=== PATIENT | female | born 1995 | race Caucasian/White ===

== ENCOUNTER 2016-05-09 07:19 | Emergency (ER) | payer OTHER ==
[2016-05-09 07:43] VITALS: BP 100/68
--- NOTE | 2016-05-09 08:01 | UC ---
Abdominal Pain Female HPI - HPI Summary HPI Summary: NAUSEA AND VOMITING X 3 HRS STARTED THIS MORNING, + ABDOMINAL PAIN , NO FEVER, NO DIARRHEA, NO URINARY SX - History of Current Complaint Chief Complaint: UCGI Stated Complaint: VOMITING Time Seen by Provider: 05/09/16 07:51 Hx Obtained From: Patient Hx Last Menstrual Period: 04/05/16 (denies sexual activity since last menses and is irregular) ?: No Onset/Duration: Sudden Onset, Lasting Hours - 3, Still Present Timing: Constant Severity Initially: Moderate Severity Currently: Moderate Location: Diffuse Radiates: No Character: Cramping Aggravating Factor(s): Food Alleviating Factor(s): NPO Associated Signs and Symptoms: Positive: Nausea, Vomiting. Negative: Diaphoresis, Fever, Cough, Chest Pain, Dizzy, Back Pain, Constipation, Blood in Stool, Urinary Symptoms, Decreased Appetite, Vaginal Bleeding, Vaginal Discharge , Diarrhea Allergies/Adverse Reactions: Allergies Allergy/AdvReac Type Severity Reaction Status Date / Time No Known Allergies Allergy Verified 05/09/16 07:38 Home Medications: Home Medications Norgestimate-Ethinyl Estradiol [Trinessa 0.18/0.215/0.25 mg-35 Mcg] 1 tab PO DAILY 05/09/16 [History Confirmed 05/09/16] PMH/Surg Hx/FS Hx/Imm Hx Endocrine History Of: Denies: Diabetes, Thyroid Disease, Hyperthyroidism, Hypothyroidism, Dyslipidemia Cardiovascular History Of: Denies: Cardiac Disorders, Hypertension, Pacemaker/ICD, Myocardial Infarction , Congestive Heart Failure, Atrial Fibrillation, Deep Vein Thrombosis, Bleeding Disorders Respiratory History Of: Denies: COPD, Asthma, Bronchitis, Pneumonia, Pulmonary Embolism GI/ History Of: Reports: Gastroesophageal Reflux Denies: Ulcer, Gastrointestinal Bleed, Gall Bladder Disease, Kidney Stones, Diverticulitis, Renal Disease, Urosepsis Neurological History Of: Denies: TIA, CVA, Dementia, Seizures, Migraine Psychological History Of: Denies: Anxiety, Depression, Bipolar Disorder, Schizophrenia, Post Traumatic Stress Disorder Cancer History Of: Denies: Lung Cancer, Colorectal Cancer, Breast Cancer, Prostate Cancer, Cervical Cancer Other History Of: Negative For: HIV, Hepatitis B, Hepatitis C, Anticoagulant Therapy - Surgical History Surgical History: Yes Surgery Procedure, Year, and Place: Endoscopy, 05/02/15, [facility]; ear tubes - Family History Known Family History: Positive: Cardiac Disease, Hypertension - maternal grandmother - Social History Alcohol Use: None Substance Use Type: None Smoking Status (MU): Never Smoked Tobacco - Immunization History Most Recent Influenza Vaccination: November 2015 Review of Systems Constitutional: Negative Skin: Negative Eyes: Negative ENT: Negative Respiratory: Negative Cardiovascular: Negative Gastrointestinal: Abdominal Pain, Vomiting Genitourinary: Negative All Other Systems Reviewed And Are Negative: Yes Physical Exam Triage Information Reviewed: Yes Appearance: Well-Appearing, No Pain Distress, Well-Nourished Vital Signs: Initial Vital Signs Temp 97.8 F 05/09/16 07:36 Pulse 68 05/09/16 07:36 Resp 16 05/09/16 07:36 BP 100/68 05/09/16 07:36 Pulse Ox 99 05/09/16 07:36 Vital Signs Reviewed: Yes Eyes: Positive: Conjunctiva Clear ENT: Positive: Normal ENT inspection, Hearing grossly normal, Pharynx normal Dental Exam: Normal Neck: Positive: Supple, Nontender, No Lymphadenopathy Respiratory Exam: Normal Respiratory: Positive: Chest non-tender, Lungs clear, Normal breath sounds Cardiovascular Exam: Normal Cardiovascular: Positive: RRR, No Murmur Abdominal Exam: Normal Abdomen Description: Positive: Soft. Negative: CVA Tenderness (R), CVA Tenderness (L), Distended, Guarding Musculoskeletal Exam: Normal Skin Exam: Normal Abd Pain Female Course/Dx - Differential Dx/Diagnosis Provider Diagnoses: GASTRITIS Discharge - Discharge Plan Condition: Stable Disposition: HOME Prescriptions: Ondansetron [Zofran Odt] 8 mg PO Q8H PRN #9 tab PRN Reason: Nausea/Vomiting Patient Education Materials: Gastritis (ED) Forms: *Work Release Referrals: Arron Santos DO [Primary Care Provider] - If Needed
== END 2016-05-09 08:18 | disposition home or self-care (01) ==
LOC: UCCORT 07:19
DX: K29.70 Gastritis, unspecified, without bleeding (principal)
CPT/HCPCS: 99212; G0463

== ENCOUNTER 2016-12-26 08:43 | Emergency (ER) | payer OTHER ==
[2016-12-26 08:57] VITALS: BP 109/75
--- NOTE | 2016-12-26 09:08 | UC ---
Respiratory Complaint HPI - HPI Summary HPI Summary: chest congestion / cough x 1 week no fever, no chills + nasal congestion , sore throat - History of Current Complaint Chief Complaint: UCRespiratory Stated Complaint: SORE THROAT Time Seen by Provider: 12/26/16 09:00 Hx Obtained From: Patient Hx Last Menstrual Period: Nov 24 ?: No Onset/Duration: Gradual Onset, Lasting Weeks - 7, Still Present Timing: Constant Severity Initially: Moderate Severity Currently: Moderate Character: Cough: Nonproductive Aggravating Factors: Exertion, Deep Breaths Alleviating Factors: Nothing Associated Signs And Symptoms: Positive: URI, Nasal Congestion. Negative: Dyspnea, Fever, Chills, Pleuritic Chest Pain, Wheezing, Hemoptysis, Dizziness, Calf Pain, Calf Swelling, Hoarseness, Sinus Discomfort - Allergies/Home Medications Allergies/Adverse Reactions: Allergies Allergy/AdvReac Type Severity Reaction Status Date / Time No Known Allergies Allergy Verified 12/26/16 08:57 Home Medications: Home Medications Oral Scabies Med 25 mg PO ONCE 12/26/16 [History Confirmed 12/26/16] PMH/Surg Hx/FS Hx/Imm Hx Previously Healthy: Yes Other History Of: Negative For: HIV, Hepatitis B, Hepatitis C, Anticoagulant Therapy - Surgical History Surgical History: Yes Surgery Procedure, Year, and Place: Endoscopy, 05/02/15, [facility] [place]; ear tubes - Family History Known Family History: Positive: Cardiac Disease, Hypertension - maternal grandmother - Social History Alcohol Use: Weekly Alcohol Amount: 4-5 Substance Use Type: None Smoking Status (MU): Never Smoked Tobacco - Immunization History Most Recent Influenza Vaccination: November 2015 Review of Systems Constitutional: Negative Skin: Negative Eyes: Negative ENT: Sore Throat, Nasal Discharge Respiratory: Cough Cardiovascular: Negative Gastrointestinal: Negative Is Patient Immunocompromised?: No All Other Systems Reviewed And Are Negative: Yes Physical Exam Triage Information Reviewed: Yes Appearance: Well-Appearing, No Pain Distress, Well-Nourished Vital Signs: Initial Vital Signs Temp 98.6 F 12/26/16 08:49 Pulse 69 12/26/16 08:49 Resp 20 12/26/16 08:49 BP 109/75 12/26/16 08:49 Pulse Ox 100 12/26/16 08:49 Vital Signs Reviewed: Yes Eyes: Positive: Conjunctiva Clear ENT: Positive: Normal ENT inspection, Hearing grossly normal, Pharynx normal, Nasal congestion, Nasal drainage, TMs normal Neck exam: Normal Neck: Positive: Supple, Nontender, No Lymphadenopathy Respiratory: Positive: Chest non-tender, Lungs clear, Normal breath sounds Cardiovascular: Positive: RRR, No Murmur, Pulses Normal Skin Exam: Normal UC Diagnostic Evaluation - Laboratory O2 Sat by Pulse Oximetry: 100 Respiratory Course/Dx - Differential Dx/Diagnosis Provider Diagnoses: viral bronchitis Discharge - Discharge Plan Condition: Stable Disposition: HOME Patient Education Materials: Acute Bronchitis (ED) Forms: *School Release, *Work Release Referrals: Arron Santos DO [Primary Care Provider] - If Needed
== END 2016-12-26 09:09 | disposition home or self-care (01) ==
LOC: UCCORT 08:43
DX: J20.8 Acute bronchitis due to other specified organisms (principal)
CPT/HCPCS: 99211; G0463

== ENCOUNTER 2017-03-22 12:43 | Emergency (ER) | payer OTHER ==
[2017-03-22 13:41] VITALS: BP 118/82
== END 2017-03-22 13:52 | disposition left against medical advice (07) ==
LOC: UCCORT 12:43
DX: J02.9 Acute pharyngitis, unspecified (principal); Z53.21 Procedure and treatment not carried out due to patient leaving prior to being seen by health care provider

== ENCOUNTER 2017-05-12 18:20 | Emergency (ER) | payer OTHER | END 2017-05-12 18:39 | disposition left against medical advice (07) | LOC: UCCORT 18:20 | DX: R68.89 Other general symptoms and signs (principal); Z53.21 Procedure and treatment not carried out due to patient leaving prior to being seen by health care provider ==

== ENCOUNTER 2017-05-16 07:13 | Emergency (ER) | payer OTHER ==
[2017-05-16 07:35] VITALS: BP 105/66
--- NOTE | 2017-05-16 07:54 | UC ---
Respiratory Complaint HPI - HPI Summary HPI Summary: Cough and congestion for about two days. She also has sore throat. No fever or myalgias. - History of Current Complaint Chief Complaint: UCRespiratory Stated Complaint: FLU SYMPTOMS Time Seen by Provider: 05/16/17 07:44 Hx Obtained From: Patient Hx Last Menstrual Period: 04/30/17 Onset/Duration: Gradual Onset, Lasting Days Timing: Constant Severity Initially: Moderate Severity Currently: Moderate Pain Intensity: 5 Character: Cough: Nonproductive Aggravating Factors: Deep Breaths, Recumbent Position Alleviating Factors: Upright Position, Spontaneous Resolution Associated Signs And Symptoms: Positive: URI, Nasal Congestion. Negative: Fever , Calf Pain, Calf Swelling - Allergies/Home Medications Allergies/Adverse Reactions: Allergies Allergy/AdvReac Type Severity Reaction Status Date / Time No Known Allergies Allergy Verified 05/16/17 07:24 Home Medications: Home Medications Acetaminophen TAB* [Tylenol TAB*] 650 mg PO ONCE PRN 05/16/17 [History Confirmed 05/16/17] PMH/Surg Hx/FS Hx/Imm Hx Previously Healthy: Yes Other History Of: Negative For: HIV, Hepatitis B, Hepatitis C, Anticoagulant Therapy - Surgical History Surgical History: Yes Surgery Procedure, Year, and Place: Endoscopy, [place]15[place] [facility] [place] - Family History Known Family History: Positive: Cardiac Disease, Hypertension - maternal grandmother - Social History Occupation: Employed Full-time Alcohol Use: Weekly Alcohol Amount: 1-2 Substance Use Type: None Smoking Status (MU): Never Smoked Tobacco - Immunization History Most Recent Influenza Vaccination: November 2015 Review of Systems Constitutional: Negative ENT: Sore Throat Respiratory: Cough All Other Systems Reviewed And Are Negative: Yes Physical Exam Triage Information Reviewed: Yes Appearance: Well-Appearing, No Pain Distress, Well-Nourished Vital Signs: Initial Vital Signs Temp 98.3 F 05/16/17 07:26 Pulse 69 05/16/17 07:26 Resp 20 05/16/17 07:26 BP 105/66 05/16/17 07:26 Pulse Ox 99 05/16/17 07:26 Vital Signs Reviewed: Yes Eyes: Positive: Conjunctiva Clear ENT: Positive: Pharyngeal erythema, Nasal congestion, Uvula midline. Negative: TM bulging - there is cesar clear fluid without significant bulging., TM dull, TM red, Tonsillar swelling, Tonsillar exudate, Trismus, Muffled voice, Sinus tenderness Neck: Positive: Supple, Nontender, No Lymphadenopathy Respiratory: Positive: Lungs clear, Normal breath sounds, No respiratory distress, No accessory muscle use. Negative: Respiratory distress, Decreased breath sounds, Accessory muscle use, Crackles, Rhonchi, Stridor, Wheezing Cardiovascular: Positive: RRR, No Murmur Abdomen Description: Positive: Nontender, No Organomegaly. Negative: Distended , Guarding Musculoskeletal: Positive: Strength Intact, ROM Intact, No Edema Neurological: Positive: Alert, Muscle Tone Normal. Negative: Fatigued Psychological: Positive: Age Appropriate Behavior Skin: Negative: rashes UC Diagnostic Evaluation - Laboratory O2 Sat by Pulse Oximetry: 99 Respiratory Course/Dx - Differential Dx/Diagnosis Provider Diagnoses: uri Discharge - Discharge Plan Condition: Good Disposition: HOME Prescriptions: Oseltamivir CAP* [Tamiflu CAP*] 75 mg PO DAILY #10 cap Patient Education Materials: Influenza (DC) Forms: *Work Release Referrals: No Primary Care Phys,NOPCP [Primary Care Provider] -
== END 2017-05-16 09:02 | disposition home or self-care (01) ==
LOC: UCCORT 07:13
DX: J06.9 Acute upper respiratory infection, unspecified (principal); Z32.02 Encounter for pregnancy test, result negative
CPT/HCPCS: 84702; 87502; 99212; G0463

== ENCOUNTER 2017-12-12 16:07 | Emergency (ER) | payer BC ==
[2017-12-12 18:40] VITALS: BP 114/63
--- NOTE | 2017-12-12 18:40 | UC ---
UC General HPI - HPI Summary HPI Summary: sore throat x 3 says. now runny nose and cough - History of Current Complaint Stated Complaint: ST Time Seen by Provider: 12/12/17 18:30 Hx Obtained From: Patient Hx Last Menstrual Period: 04/30/17 Onset/Duration: Gradual Onset Timing: Constant Alleviating: nothing Associated Signs & Symptoms: Positive: Cough. Negative: Fever - Allergy/Home Medications Allergies/Adverse Reactions: Allergies Allergy/AdvReac Type Severity Reaction Status Date / Time No Known Allergies Allergy Verified 12/12/17 18:36 Home Medications: Home Medications Dm/Pseudoephed/Acetaminophen [Day-Time Multi-Symptom Co] 1 cap PO ONCE 12/12/17 [History Confirmed 12/12/17] PMH/Surg Hx/FS Hx/Imm Hx Previously Healthy: Yes Other History Of: Negative For: HIV, Hepatitis B, Hepatitis C, Anticoagulant Therapy - Surgical History Surgical History: Yes Surgery Procedure, Year, and Place: Endoscopy, 05/02/15, [facility] [place]; ear tubes - Family History Known Family History: Positive: Cardiac Disease, Hypertension - maternal grandmother - Social History Occupation: Employed Full-time Alcohol Use: Weekly Alcohol Amount: 1-2 Substance Use Type: None Smoking Status (MU): Never Smoked Tobacco - Immunization History Most Recent Influenza Vaccination: November 2015 Vaccination Up to Date: Yes Review of Systems Constitutional: Negative Skin: Negative Eyes: Negative ENT: Sore Throat, Sinus Congestion Respiratory: Cough Cardiovascular: Negative Gastrointestinal: Negative Genitourinary: Negative Motor: Negative Neurovascular: Negative Musculoskeletal: Negative Neurological: Negative Psychological: Negative Is Patient Immunocompromised?: No All Other Systems Reviewed And Are Negative: Yes Physical Exam Triage Information Reviewed: Yes Appearance: Well-Appearing Vital Signs Reviewed: Yes Eyes: Positive: Conjunctiva Clear ENT: Positive: Pharyngeal erythema, Nasal congestion, TMs normal, Uvula midline. Negative: Trismus, Muffled voice, Hoarse voice, Sinus tenderness Neck: Positive: Supple, Nontender, No Lymphadenopathy Respiratory: Positive: Lungs clear, Normal breath sounds Cardiovascular: Positive: RRR, No Murmur Abdomen Description: Positive: Nontender, No Organomegaly, Soft Bowel Sounds: Positive: Present Musculoskeletal: Positive: ROM Intact Neurological: Positive: Alert Psychological: Positive: Age Appropriate Behavior Skin Exam: Normal Diagnostics - Laboratory Diagnostic Studies Completed/Ordered: rapid strep=neg Course/Dx - Course Course Of Treatment: rapid strep=neg. tx supportive - Differential Dx - Multi-Symptom Provider Diagnoses: uri. sore throat Discharge - Sign-Out/Discharge Documenting (check all that apply): Patient Departure All imaging exams completed and their final reports reviewed: No Studies - Discharge Plan Condition: Stable Disposition: HOME Patient Education Materials: Upper Respiratory Infection (ED), Pharyngitis (ED) Forms: *Work Release Referrals: Grisel Mccarthy [Primary Care Provider] - 7 Days - Billing Disposition and Condition Condition: STABLE Disposition: Home
== END 2017-12-12 19:02 | disposition home or self-care (01) ==
LOC: UCCORT 16:07
DX: J06.9 Acute upper respiratory infection, unspecified (principal); J02.9 Acute pharyngitis, unspecified
CPT/HCPCS: 87651; 99211; G0463

== ENCOUNTER 2018-01-21 11:28 | Emergency (ER) | payer BC ==
[2018-01-21 12:00] VITALS: BP 115/77
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
--- NOTE | 2018-01-21 13:05 | RAD ---
Indication: Left mandible injury. 4 views of the mandible demonstrates no fracture. No other bone or joint abnormality is identified. IMPRESSION: No fracture of the mandible is noted.
== END 2018-01-21 13:12 | disposition home or self-care (01) ==
LOC: UCCORT 11:28
DX: M26.621 Arthralgia of right temporomandibular joint (principal)
CPT/HCPCS: 70110; 99211; G0463

== ENCOUNTER 2018-03-20 11:58 | Emergency (ER) | payer BC ==
[2018-03-20 13:37] VITALS: BP 134/93
--- NOTE | 2018-03-20 14:13 | UC ---
FLU HPI - HPI Summary HPI Summary: 22 year old female presents with 3 day history fatigue, body aches, chills, decreased appetite, nasal congestion, sore throat, and occasionally productive cough. Denies fever, ear pain, chest pain, shortness of breath, abdominal pain, nausea, vomiting, diarrhea. - History of Current Complaint Chief Complaint: UCGeneralIllness Stated Complaint: FLU SX'S Time Seen by Provider: 03/20/18 13:41 Hx Obtained From: Patient Hx Last Menstrual Period: 02/25/18 Pain Intensity: 0 - Allergy/Home Medications Allergies/Adverse Reactions: Allergies Allergy/AdvReac Type Severity Reaction Status Date / Time No Known Allergies Allergy Verified 01/21/18 11:54 PMH/Surg Hx/FS Hx/Imm Hx Previously Healthy: Yes - Denies significant PMH Other History Of: Negative For: HIV, Hepatitis B, Hepatitis C, Anticoagulant Therapy - Surgical History Surgical History: Yes Surgery Procedure, Year, and Place: Endoscopy, 05/02/15, [facility] [place]; ear tubes - Family History Known Family History: Positive: Cardiac Disease, Hypertension - maternal grandmother - Social History Occupation: Employed Full-time Lives: With Family Alcohol Use: Occasionally Alcohol Amount: 1-2 Substance Use Type: None Smoking Status (MU): Never Smoked Tobacco - Immunization History Most Recent Influenza Vaccination: November 2015 Vaccination Up to Date: Yes Review of Systems All Other Systems Reviewed And Are Negative: Yes Constitutional: Positive: Chills, Fatigue. Negative: Fever Skin: Negative: Rash Eyes: Negative: Drainage, Eye Redness ENT: Positive: Sore Throat, Nasal Discharge, Sinus Congestion, Sinus Pain/ Tenderness. Negative: Ear Ache Respiratory: Positive: Cough. Negative: Shortness Of Breath Cardiovascular: Negative: Palpitations, Chest Pain Gastrointestinal: Negative: Abdominal Pain, Vomiting, Diarrhea, Nausea Genitourinary: Positive: Negative Is Patient Immunocompromised?: No Physical Exam - Summary Physical Exam Summary: GENERAL APPEARANCE: Well developed, well nourished, alert and cooperative, and appears to be in no acute distress. EYES: Conjunctiva clear. No discharge. Vision is grossly intact. EARS: External auditory canals and tympanic membranes clear, hearing grossly intact. NOSE: Mild nasal congestion with mucosal erythema and edema. No nasal discharge. THROAT: Mild pharyngeal erythema with cobblestoning. No tonsilar inflammation, swelling, exudate, or lesions. Oral cavity normal. Teeth and gingiva in good general condition. NECK: Neck supple, non-tender without lymphadenopathy. CARDIAC: Normal S1 and S2. No S3, S4 or murmurs. Rhythm is regular. There is no peripheral edema, cyanosis or pallor. Extremities are warm and well perfused. Capillary refill is less than 2 seconds. LUNGS: Clear to auscultation and percussion without rales, rhonchi, wheezing or diminished breath sounds. ABDOMEN: Positive bowel sounds. Soft, nondistended, nontender. No guarding or rebound. No masses or hepatosplenomegally. SKIN: Skin normal color, texture and turgor with no lesions or eruptions. Triage Information Reviewed: Yes Vital Signs: Initial Vital Signs Temp 97.5 F 03/20/18 13:34 Pulse 63 03/20/18 13:34 Resp 18 03/20/18 13:34 BP 134/93 03/20/18 13:34 Pulse Ox 97 03/20/18 13:34 Vital Signs Reviewed: Yes Diagnostics - Laboratory Diagnostic Studies Completed/Ordered: Rapid flu shot negative. Flu Course/Dx - Course Course Of Treatment: 22 year old female presents with 3 day history fatigue, body aches, chills, decreased appetite, nasal congestion, sore throat, and occasionally productive cough. Denies fever, ear pain, chest pain, shortness of breath, abdominal pain, nausea, vomiting, diarrhea. Afebrile. VSS. Exam revealed mild nasal congestion with mucosal erythema and edema, pharyngeal erythema without tonsilar swelling or exudate. Rapid flu negative. recommend symptomatic treatment for viral URI. She is to follow up with PCP in 7 days if symptoms persist. Warning symptoms reviewed. Verbalizes understanding and agrees with POC. - Differential Dx/Diagnosis Differential Diagnosis/HQI/PQRI: Bronchitis, Influenza, Pneumonia, Upper Respiratory Infection Provider Diagnosis: Viral URI with cough Discharge - Sign-Out/Discharge Documenting (check all that apply): Patient Departure All imaging exams completed and their final reports reviewed: No Studies - Discharge Plan Condition: Stable Disposition: HOME Patient Education Materials: Upper Respiratory Infection (ED) Referrals: Grisel Mccarthy [Primary Care Provider] - 7 Days (If symptoms persist.) Additional Instructions: Your history and exam are consistent with a viral upper respiratory infection. Viral infections do not respond to antibiotics and are limited to the treatment of symptoms. Viral infections typically run their course in 7-10 days. Drink plenty of fluids to avoid dehydration especially if you are running any fever. Use a saline rinse kit such as Neti Pot or NeilMed at least twice a day to help thin secretions and promote drainage of the sinuses. Use fluticasone (Flonase) nasal spray 2 sprays each nostril once daily. Use an over the counter decongestant such as Sudafed according to directions as needed for congestion. Take over the counter acetaminophen (Tylenol) or ibuprofen (Advil, Motrin) according to directions as needed for pain or fever. Use salt water gargles several times a day if you have a sore throat. You may also use Chloraseptic spray or Cepacol lonzenges according to directions which contain a numbing medication and can provide some temporary relief from your sore throat. Follow up with your primary care provider in 7 days if symptoms persist. Seek immediate medical attention in the emergency room if you have fever greater than 100.5 F despite taking acetaminophen or ibuprofen, have chest pain , difficulty breathing, are unable to swallow, or have any worsening of symptoms. - Billing Disposition and Condition Condition: STABLE Disposition: Home - Attestation Statements Provider Attestation: Per institutional requirements, I have reviewed the chart, however, I was not consulted specifically or made aware of this patient by the midlevel provider. I did not personally evaluate, interact with , or disposition this patient.
== END 2018-03-20 14:22 | disposition home or self-care (01) ==
LOC: UCCORT 11:58
DX: J06.9 Acute upper respiratory infection, unspecified (principal); R05 Cough
CPT/HCPCS: 99211; G0463

== ENCOUNTER 2018-08-07 13:32 | Emergency (ER) | payer BC ==
[2018-08-07 14:00] VITALS: BP 118/68
--- NOTE | 2018-08-07 14:47 | UC ---
UC General HPI - HPI Summary HPI Summary: Pt presents with c/o exacerbation of previously diagnosed anxiety. Pt has been following with PCP and most recently [facility] and been taking paxil daily at 20 mg PO . Pt states her anxiety is well manage with that dosage but ran out of the medication 4 days ago and states that her anxiety is worsening since running out of medication. Pt states she was unable to make the appointment with the psychiatrist at the counseling center due to her work schedule. Pt is tearful and fidgety during physical exam. - History of Current Complaint Chief Complaint: UCGeneralIllness Stated Complaint: ANXIETY Time Seen by Provider: 08/07/18 14:36 Hx Obtained From: Patient Hx Last Menstrual Period: 06/2018 Onset/Duration: Gradual Onset, Lasting Days, Still Present, Worse Since - stopping medication Timing: Constant Onset Severity: Mild Current Severity: Moderate Pain Intensity: 0 Associated Signs & Symptoms: Positive: Agitation, Other - restlessness, insomnia - Allergy/Home Medications Allergies/Adverse Reactions: Allergies Allergy/AdvReac Type Severity Reaction Status Date / Time No Known Allergies Allergy Verified 08/07/18 13:58 Home Medications: Home Medications Omeprazole 20 mg PO DAILY PRN 08/07/18 [History Confirmed 08/07/18] Ondansetron ODT TAB* [Zofran 4 MG Odt TAB*] 4 mg PO Q6H PRN 08/07/18 [History Confirmed 08/07/18] PMH/Surg Hx/FS Hx/Imm Hx Previously Healthy: Yes Psychological History: Anxiety Other History Of: Negative For: HIV, Hepatitis B, Hepatitis C, Anticoagulant Therapy - Surgical History Surgical History: Yes Surgery Procedure, Year, and Place: Endoscopy, 05/02/15, [facility] [place]; ear tubes - Family History Known Family History: Positive: Cardiac Disease, Hypertension - maternal grandmother - Social History Occupation: Employed Full-time Lives: With Family Alcohol Use: Occasionally Alcohol Amount: 1-2 Substance Use Type: None Smoking Status (MU): Never Smoked Tobacco Have You Smoked in the Last Year: No - Immunization History Most Recent Influenza Vaccination: November 2015 Vaccination Up to Date: Yes Review of Systems All Other Systems Reviewed And Are Negative: Yes Constitutional: Positive: Fatigue Skin: Positive: Negative Eyes: Positive: Negative ENT: Positive: Negative Respiratory: Positive: Shortness Of Breath - with anxiety exacerbations Cardiovascular: Positive: Palpitations - with anxiety Gastrointestinal: Positive: Negative Genitourinary: Positive: Negative Motor: Positive: Negative Neurovascular: Positive: Negative Musculoskeletal: Positive: Negative Neurological: Positive: Negative Psychological: Positive: Anxious Is Patient Immunocompromised?: No Physical Exam - Summary Physical Exam Summary: Pt denies suicidal ideation or thoughts of harming anyone else Triage Information Reviewed: Yes Appearance: Ill-Appearing, Other: - anxious, tearful Vital Signs: Initial Vital Signs Temp 98.1 F 08/07/18 13:58 Pulse 77 08/07/18 13:58 Resp 17 08/07/18 13:58 BP 118/68 08/07/18 13:58 Pulse Ox 100 08/07/18 13:58 Vital Signs Reviewed: Yes Eye Exam: Normal ENT Exam: Normal Dental Exam: Normal Neck exam: Normal Respiratory: Positive: No respiratory distress Musculoskeletal Exam: Normal Neurological Exam: Normal Psychological: Positive: Consolable Skin Exam: Normal Course/Dx - Course Course Of Treatment: I discussed with the pat the need to follow up with her PCP and mental health provider. She agreed to plan of care and will schedule appointments [facility] - Differential Dx - Multi-Symptom Differential Diagnoses: Other - anxiety - Diagnoses Provider Diagnosis: Anxiety, Medication refill Discharge - Sign-Out/Discharge Documenting (check all that apply): Patient Departure All imaging exams completed and their final reports reviewed: No Studies - Discharge Plan Condition: Stable Disposition: HOME Prescriptions: PARoxetine HCL TAB* [Paxil TAB*] 20 mg PO DAILY #30 tab Patient Education Materials: Anxiety (ED) Referrals: Grisel Mccarthy [Primary Care Provider] - As Soon As Possible Additional Instructions: PLEASE FOLLOW UP WITH YOUR MENTAL HEALTH PROVIDER SOON POSSIBLE. - Billing Disposition and Condition Condition: STABLE Disposition: Home - Attestation Statements Provider Attestation: This patient was not seen by me. I was available for consult.
== END 2018-08-07 14:53 | disposition home or self-care (01) ==
LOC: UCCORT 13:32
DX: F41.9 Anxiety disorder, unspecified (principal); Z79.899 Other long term (current) drug therapy
CPT/HCPCS: 99212; G0463

== ENCOUNTER 2018-09-19 13:43 | Emergency (ER) | payer BC ==
[2018-09-19 14:07] VITALS: BP 116/74
--- NOTE | 2018-09-19 14:14 | UC ---
Abdominal Pain Female HPI - HPI Summary HPI Summary: Pt presents with c/o sudden onset of nausea and vomiting X 4 days. Pt has hx of anxiety and depression. Pt states that her Paxil dosage was Sunday and took first dose of increased dose yesterday denies fever, chills, abdominal pain or possible food poisoning. Pt has positive hx of vomiting with exacerbations of anxiety. - History of Current Complaint Chief Complaint: UCGI Stated Complaint: NAUSEA Time Seen by Provider: 09/19/18 14:04 Hx Obtained From: Patient Hx Last Menstrual Period: 08/06/18, PT STATES PERIODS ARE IRREGULAR ?: No - denies sexual activity Onset/Duration: Lasting Days - 4 days, Still Present Timing: Constant Severity Initially: Mild Severity Currently: Mild Pain Intensity: 3 Radiates: No Character: Aching, Dull Aggravating Factor(s): Nothing Alleviating Factor(s): Nothing Associated Signs and Symptoms: Positive: Nausea, Vomiting - Risk Factors Ectopic Risk Factor: Negative Ovarian Torsion Risk Factor: Reproductive Age Allergies/Adverse Reactions: Allergies Allergy/AdvReac Type Severity Reaction Status Date / Time No Known Allergies Allergy Verified 09/19/18 13:55 Home Medications: Home Medications PARoxetine HCL TAB* [Paxil TAB*] 30 mg PO DAILY 09/19/18 [History] hydrOXYzine HCL TAB* [Atarax 25 MG TAB*] 25 mg PO BEDTIME PRN 09/19/18 [History Confirmed 09/19/18] PMH/Surg Hx/FS Hx/Imm Hx Previously Healthy: Yes Psychological History: Anxiety, Depression Other History Of: Negative For: HIV, Hepatitis B, Hepatitis C, Anticoagulant Therapy - Surgical History Surgical History: Yes Surgery Procedure, Year, and Place: [place], [place] [facility] [place] - Family History Known Family History: Positive: Cardiac Disease, Hypertension - maternal grandmother - Social History Occupation: Employed Full-time Lives: With Family Alcohol Use: Occasionally Alcohol Amount: 1-2 Substance Use Type: None Smoking Status (MU): Never Smoked Tobacco Have You Smoked in the Last Year: No - Immunization History Most Recent Influenza Vaccination: November 2015 Vaccination Up to Date: Yes Review of Systems All Other Systems Reviewed And Are Negative: Yes Constitutional: Positive: Negative Skin: Positive: Negative Eyes: Positive: Negative ENT: Positive: Negative Respiratory: Positive: Negative Cardiovascular: Positive: Negative Gastrointestinal: Positive: Vomiting, Nausea Genitourinary: Positive: Negative Motor: Positive: Negative Neurovascular: Positive: Negative Musculoskeletal: Positive: Negative Neurological: Positive: Negative Psychological: Positive: Negative Is Patient Immunocompromised?: No Physical Exam Triage Information Reviewed: Yes Appearance: Well-Appearing Vital Signs: Initial Vital Signs Temp 97.9 F 09/19/18 13:58 Pulse 65 09/19/18 13:58 Resp 15 09/19/18 13:58 BP 116/74 09/19/18 13:58 Pulse Ox 99 09/19/18 13:58 Vital Signs Reviewed: Yes Eye Exam: Normal ENT Exam: Normal Dental Exam: Normal Neck exam: Normal Respiratory Exam: Normal Cardiovascular Exam: Normal Abdominal Exam: Normal Abdomen Description: Positive: Nontender Musculoskeletal Exam: Normal Neurological Exam: Normal Psychological Exam: Normal Skin Exam: Normal Abd Pain Female Course/Dx - Differential Dx/Diagnosis Differential Diagnosis: , Other - anxiety Provider Diagnosis: Nausea & vomiting Discharge - Sign-Out/Discharge Documenting (check all that apply): Patient Departure All imaging exams completed and their final reports reviewed: No Studies - Discharge Plan Condition: Stable Disposition: HOME Prescriptions: Ondansetron TAB* [Zofran 4 MG Tab*] 4 mg PO Q6H PRN #24 tab PRN Reason: Nausea Patient Education Materials: Acute Nausea and Vomiting (ED) Forms: *Work Release Referrals: Grisel Mccarthy [Primary Care Provider] - If Needed - Billing Disposition and Condition Condition: STABLE Disposition: Home
== END 2018-09-19 14:20 | disposition home or self-care (01) ==
LOC: UCCORT 13:43
DX: R11.2 Nausea with vomiting, unspecified (principal); F41.9 Anxiety disorder, unspecified; F32.9 Major depressive disorder, single episode, unspecified
CPT/HCPCS: 99212; G0463

== ENCOUNTER 2018-10-06 11:00 | Emergency (ER) | payer BC, OTHER ==
[2018-10-06 11:18] VITALS: BP 122/71
--- NOTE | 2018-10-06 11:27 | UC ---
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 - History of Current Complaint Chief Complaint: UCBackPain Stated Complaint: BACK INURY (W/C) Time Seen by Provider: 10/06/18 11:02 Hx Obtained From: Patient Hx Last Menstrual Period: 08/25/18- states normal for her to have irregular periods_ PCOS ?: No Onset/Duration: Sudden Onset, Lasting Days - 1 Timing: Constant Pain Intensity: 7 Pain Scale Used: 0-10 Numeric Back Pain: Is Discrete @ - lower back radiating down left leg Character: Aching, Spasmodic Aggravating Factor(s): Movement Alleviating Factor(s): OTC Meds Associated Signs And Symptoms: Positive: Negative Related History: Occupational Injury - Allergies/Home Medications Allergies/Adverse Reactions: Allergies Allergy/AdvReac Type Severity Reaction Status Date / Time No Known Allergies Allergy Verified 10/06/18 11:12 Home Medications: Home Medications Acetaminophen TAB* [Tylenol TAB*] 650 mg PO Q4H PRN 10/06/18 [History Confirmed 10/06/18] Ibuprofen TAB* [Motrin TAB* 600 MG] 800 mg PO Q6H PRN 10/06/18 [History Confirmed 10/06/18] PMH/Surg Hx/FS Hx/Imm Hx Previously Healthy: No GI/ History: Gastroesophageal Reflux Psychological History: Depression Other History Of: Negative For: HIV, Hepatitis B, Hepatitis C, Anticoagulant Therapy - Surgical History Surgical History: Yes Surgery Procedure, Year, and Place: Endoscopy, 05/02/15, [facility] [place]; ear tubes - Family History Known Family History: Positive: Cardiac Disease, Hypertension - maternal grandmother - Social History Occupation: Employed Full-time Lives: With Family Alcohol Use: Occasionally Alcohol Amount: 1-2 Substance Use Type: None Smoking Status (MU): Never Smoked Tobacco Have You Smoked in the Last Year: No - Immunization History Most Recent Influenza Vaccination: November 2015 Vaccination Up to Date: Yes Review of Systems All Other Systems Reviewed And Are Negative: Yes Constitutional: Positive: Negative Skin: Positive: Negative Eyes: Positive: Negative ENT: Positive: Negative Respiratory: Positive: Negative Cardiovascular: Positive: Negative Gastrointestinal: Positive: Negative Genitourinary: Positive: Negative Motor: Positive: Negative Neurovascular: Positive: Negative Musculoskeletal: Positive: Decreased ROM - unable to crystal forward and touch toes , Myalgia Neurological: Positive: Negative Psychological: Positive: Negative Is Patient Immunocompromised?: No Physical Exam Triage Information Reviewed: Yes Appearance: Well-Appearing, No Pain Distress, Well-Nourished Vital Signs: Initial Vital Signs Temp 97.9 F 10/06/18 11:13 Pulse 79 10/06/18 11:13 Resp 15 10/06/18 11:13 BP 122/71 10/06/18 11:13 Pulse Ox 100 10/06/18 11:13 Vital Signs Reviewed: Yes Eye Exam: Normal Eyes: Positive: Conjunctiva Clear ENT Exam: Normal ENT: Positive: Normal ENT inspection, Hearing grossly normal. Negative: Nasal congestion, Trismus, Muffled voice, Hoarse voice Neck exam: Normal Neck: Positive: Supple, Nontender, No Lymphadenopathy Respiratory Exam: Normal Respiratory: Positive: Chest non-tender, No respiratory distress, No accessory muscle use Cardiovascular Exam: Normal Cardiovascular: Positive: RRR, Pulses Normal, Brisk Capillary Refill Musculoskeletal Exam: Normal Musculoskeletal: Positive: Strength Intact, No Edema, ROM Limited @ - back Neurological Exam: Normal Neurological: Positive: Alert, Muscle Tone Normal Psychological Exam: Normal Skin Exam: Normal Back Pain Course/Dx - Course Course Of Treatment: ice, ibuprofen, flexeril, low back exercise follow with pcp - Differential Dx/Diagnosis Provider Diagnosis: Low back strain Discharge - Sign-Out/Discharge Documenting (check all that apply): Patient Departure All imaging exams completed and their final reports reviewed: No Studies - Discharge Plan Condition: Stable Disposition: HOME Prescriptions: Cyclobenzaprine TAB* [Flexeril 10 MG TAB*] 10 mg PO TID PRN #15 tab PRN Reason: muscle spasm Patient Education Materials: Low Back Strain (ED), Lower Back Exercises (ED) Forms: *Work Release Referrals: Grisel Mccarthy [Primary Care Provider] - 2 Days - Billing Disposition and Condition Condition: STABLE Disposition: Home - Attestation Statements Provider Attestation: I was available for consult. This patient was seen by the [facility]IS[facility]. The patient was not presented to , seen by or examined by ar -Megan Nunn MD
== END 2018-10-06 11:31 | disposition home or self-care (01) ==
LOC: UCCORT 11:00
DX: S33.5XXA Sprain of ligaments of lumbar spine, initial encounter (principal); X50.0XXA Overexertion from strenuous movement or load, initial encounter; Y93.F2 Activity, caregiving, lifting; Y92.129 Unspecified place in nursing home as the place of occurrence of the external cause
CPT/HCPCS: 99212; G0463

== ENCOUNTER 2018-11-02 09:44 | Emergency (ER) | payer OTHER ==
[2018-11-02 10:33] VITALS: BP 115/82
--- NOTE | 2018-11-02 11:03 | UC ---
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 TRIED 1000MG IBUPROFEN AND 1000MG TYLENOL W/ NOT MUCH RELIEF-LAST TOOK TYLENOL TODAY 0830. ALSO APPLIED LIDOCAINE PATCH W/ PAIN RELIEF. RECENT BACK INJURY 10/06/18 AND SEEN HERE- RX FLEXERIL; TOOK MED W/ SOME PAIN RELIEF. " -reveiewed recent September progress note. -denies any chance of preganncy -no numbing/radiation into legs. -no loss of bowel or bladder function, no saddle anesthesia. - History of Current Complaint Chief Complaint: UCBackPain Stated Complaint: BACK INJURY (WC) Time Seen by Provider: 11/02/18 10:57 Hx Last Menstrual Period: 10/14/18 Pain Intensity: 8 - Allergies/Home Medications Allergies/Adverse Reactions: Allergies Allergy/AdvReac Type Severity Reaction Status Date / Time No Known Allergies Allergy Verified 11/02/18 10:27 PMH/Surg Hx/FS Hx/Imm Hx Previously Healthy: Yes Other History Of: Negative For: HIV, Hepatitis B, Hepatitis C, Anticoagulant Therapy - Surgical History Surgical History: Yes Surgery Procedure, Year, and Place: [place] [facility] [place] - Family History Known Family History: Positive: Cardiac Disease, Hypertension - maternal grandmother - Social History Alcohol Use: Occasionally Alcohol Amount: 1-2 Substance Use Type: None Smoking Status (MU): Never Smoked Tobacco Have You Smoked in the Last Year: No - Immunization History Most Recent Influenza Vaccination: November 2015 Vaccination Up to Date: Yes Review of Systems All Other Systems Reviewed And Are Negative: Yes Constitutional: Positive: Negative Skin: Positive: Negative. Negative: Rash, Bruising Eyes: Positive: Negative ENT: Positive: Negative Respiratory: Positive: Negative Cardiovascular: Positive: Negative Gastrointestinal: Positive: Negative Genitourinary: Positive: Negative Motor: Positive: Decreased ROM Neurovascular: Positive: Negative. Negative: Decreased Sensation, Decreased Pulses Musculoskeletal: Positive: Decreased ROM, Myalgia Neurological: Positive: Negative Psychological: Positive: Negative Is Patient Immunocompromised?: No Physical Exam Triage Information Reviewed: Yes Appearance: Well-Nourished, Pain Distress - mild-mod Vital Signs: Initial Vital Signs Temp 97.8 F 11/02/18 10:27 Pulse 79 11/02/18 10:27 Resp 16 11/02/18 10:27 BP 115/82 11/02/18 10:27 Pulse Ox 100 11/02/18 10:27 Vital Signs Reviewed: Yes Eye Exam: Normal ENT Exam: Normal Neck exam: Normal Respiratory Exam: Normal Respiratory: Positive: Lungs clear, Normal breath sounds, No respiratory distress, No accessory muscle use Cardiovascular Exam: Normal Cardiovascular: Positive: RRR Abdominal Exam: Normal Abdomen Description: Positive: Nontender Musculoskeletal: Positive: Strength Intact, No Edema, ROM Limited @ - flexion of back. extension is nml, b/l rotatio is nml. neg SLR b/l. + 2 patellar reflexes equal/ bilaterally. Neurological Exam: Normal - sensation intact to light touch Neurological: Positive: Muscle Tone Normal Psychological Exam: Normal Skin Exam: Normal Skin: Negative: Rashes, Significant Lesion(s) Back Pain Course/Dx - Course Course Of Treatment: low back muscle strain w/o any red flag sx. -rest, heat -flexiril, COLIN -states she has 4 flexiril tabes left over. was gievn #15 10 mgs tabs -OOW today adn tomorrow. would need to disc "light duty" limitations with PCP -she v/u and is agreeable w/ plan - Differential Dx/Diagnosis Differential Diagnosis/HQI/PQRI: Herniated Disc, Strain, Sprain Provider Diagnosis: Low back strain Discharge - Sign-Out/Discharge Documenting (check all that apply): Patient Departure All imaging exams completed and their final reports reviewed: No Studies - Discharge Plan Condition: Stable Disposition: HOME Prescriptions: Cyclobenzaprine (NF) [Cyclobenzaprine 5 MG (NF)] 5 mg PO TID PRN 5 Days #10 tab PRN Reason: Pain - Moderate Patient Education Materials: Low Back Strain (ED), Lower Back Exercises (ED) Forms: *Work Release Referrals: Grisel Mccarthy [Primary Care Provider] - 2 Days Additional Instructions: -rest, heat, short term ibuprofen OTC and flexiril. Do not drive while on flexiril. out of work today and tomorrow. Return tow rok to be determined by PCP - Billing Disposition and Condition Condition: STABLE Disposition: Home
== END 2018-11-02 11:42 | disposition home or self-care (01) ==
LOC: UCCORT 09:44
DX: S39.012A Strain of muscle, fascia and tendon of lower back, initial encounter (principal); X50.0XXA Overexertion from strenuous movement or load, initial encounter; Y93.F2 Activity, caregiving, lifting; Y92.122 Bedroom in nursing home as the place of occurrence of the external cause; Y99.0 Civilian activity done for income or pay
CPT/HCPCS: 99212; G0463